=== PATIENT | male | born 1970 | race African-American/Black ===

== ENCOUNTER 2020-11-10 06:09 | Emergency (ER) | payer OTHER ==
[~2020-11-10] VITALS: Ht 170.2 cm; Wt 108.9 kg
--- NOTE | 2020-11-10 06:20 | NUR ---
ARRIVAL PT ARRIVED TO ED WITH C/O LOW BACK TO FEET NUMBNESS. PT REPORTS THAT HE HAS CHRONIC BACK PAIN HISTORY AND WHEN HE WOKE UP THIS MORNING HE FELT LIKE HE WAS NUMB FROM HIS LOWER BACK TO HIS FEET ON THE POSTERIOR SIDES OF HIS LEGS ONLY. BEDSIDE MONITORS APPIED. VITAL SIGNS STABLE. BED IN LOW LOCKED POSITION. PT DENIES ANY DIFFICULYT WITH VOIDING OR DEFICATION OR ANY LOSE OF URINE OR BOWELS.
[2020-11-10 06:32] VITALS: BP 149/97
[2020-11-10] MEDS ORDERED: TORADOL IM STA (06:40)
[2020-11-10] MEDS ORDERED: DECADRON IM STA (06:40)
--- NOTE | 2020-11-10 06:48 | ER.PDOC ---
General Chief Complaint: Lower Back Pain or Injury Stated Complaint: BACK PAIN Time seen by MD: 06:42 Source: patient Exam Limitations: no limitations History of Present Illness Initial Comments Low back pain radiating to both legs with tingling and numbness this morning. Patient has chronic back pain for years and takes pain medication and muscle relaxants, No recent fall or injury. No problems urinating or having a bowel movement. Timing/Duration: this morning Severity/Quality: moderate Radiation: upper legs, lower legs, feet Method of Injury: bending, twisted, prior injury Modifying Factors: improves with movement Associated Symptoms: muscle spasms, numbness in legs/feet, tingling in legs/feet, lower back pain Prior symptoms/Treatment: Similar symptoms previous Past Medical History Medical History: other (Chronic back pain) Surgical History: back Family History Significant Family History: no pertinent family hx Social History Alcohol Use: none Drug Use: none Review of Systems Constitutional: no symptoms reported EENTM: no symptoms reported Respiratory: no symptoms reported Cardiovascular: no symptoms reported Gastrointestinal: no symptoms reported Musculoskeletal: see HPI All Other Systems: Reviewed and Negative Physical Exam General Appearance: No Apparent Distress, WD/WN Neck: Non-Tender, Normal Alignment Cardiovascular/Respiratory: Regular Rate, Rhythm, No M/R/G, Normal Peripheral Pulses, No JVD, Normal Breath Sounds, No Respiratory Distress Gastrointestinal: Normal Bowel Sounds, No Organomegaly, No Pulsatile Mass, Non Tender, Soft Back: Normal Inspection, No CVA Tenderness, No Vertebral Tenderness, Muscle Spasm, Vertebral Tenderness (L spine) Extremities: No Evidence of Injury, Normal Range of Motion, Non-Tender, No Pedal Edema, Pelvis Stable Neuro/Psych: Alert, certified nurse practitioner nml/symmetrical, mood/effect nml, No Motor/Sensory Deficits, Relexes nml Skin: Normal Color, Warm/Dry Results/Orders Results/Orders Vital Signs Date Time Temp Pulse Resp B/P (MAP) Pulse Ox O2 Delivery O2 Flow Rate FiO2 11/10/20 06:32 98.9 91 18 149/97 (114) 96 Room Air 11/10/20 06:32 98.9 91 18 96 11/10/20 06:32 98.9 91 18 Administered Medications Medications (Trade) Dose Ordered Sig/Zander Route PRN Reason Start Time Stop Time Status Last Admin Dose Admin Ketorolac Tromethamine (Toradol) 60 mg STAT STAT IM 11/10/20 06:40 11/10/20 06:42 DC 11/10/20 06:56 60 MG Progress Progress Care of patient transferred to Dr. Armstrong at 0700 EKG/XRAY/CT/US CT Comments: L3-4 severe canal reduction d/t disc bulge ER DEPART Departure Time of Disposition: 07:53 Disposition: 01 HOME, SELF-CARE Impression: Primary Impression: Low back pain Additional Impression: Lumbar disc herniation with radiculopathy Condition: Stable Patient Instructions: Sciatica Referrals: PCP,UNKNOWN (PCP) PRIMARY CARE PROVIDER Additional Instructions: Take steroids as prescribed until gone. You may not return to work until released by your back surgeon. Return to ER if symptoms worsen, weakness to legs, loss of bowel/bladder control, or for any other concerns. No bending at the waist or lifting more than 10 pounds. Duration or Time Spent with Pa: 20 min Problem Qualifiers Primary Impression: Low back pain Chronicity: acute Back pain laterality: bilateral Sciatica presence: with sciatica Sciatica laterality: bilateral sciatica Qualified Codes: M54.42 - Lumbago with sciatica, left side; M54.41 - Lumbago with sciatica, right side NOHEMI LIVE MD Nov 10, 2020 06:48 RUTH ARMSTRONG DO Nov 10, 2020 07:55
[2020-11-10] MEDS ORDERED: TORADOL ONE (06:54)
[2020-11-10] MEDS ORDERED: DECADRON ONE (06:54)
--- NOTE | 2020-11-10 07:37 | DIREP ---
PROCEDURE: CT LUMBAR SPINE WITHOUT CONTRAST TECHNIQUE:Axial cuts were obtained through the lumbar spine. The images were viewed at bone settings. Sagittal and coronal reconstructions are provided. COMPARISON:None. INDICATIONS:pain FINDINGS: ALIGNMENT:Normal. VERTEBRAE:No fracture is demonstrated. Postsurgical changes are seen with laminectomies at L4-5. PARASPINAL AREA:Normal. OTHER:No additional findings. LUMBAR DISC LEVELS T12-L1:Normal. L1-L2:Normal. L2-L3:A diffuse disc bulge is seen with bilateral facet arthropathy with mild canal stenosis and moderate bilateral neural foraminal narrowing. L3-L4:A diffuse disc bulge is seen with bilateral facet arthropathy and ligamentum flavum hypertrophy with severe canal stenosis and severe bilateral neural foraminal narrowing. L4-L5:A diffuse disc bulge is seen with bilateral facet arthropathy with mild canal stenosis with severe bilateral neural foraminal narrowing. L5-S1:Bilateral facet arthropathy is seen with severe bilateral neural foraminal narrowing without canal stenosis. CONCLUSION: 1. Postsurgical changes are seen with laminectomies at L4-5. No compression fracture is seen. 2. There are findings of severe canal stenosis with severe bilateral neural foraminal stenosis at L3-4. Mild canal stenosis is demonstrated at L2-3 and L4-5 with multilevel neural foraminal stenosis as described above. Dictated by: Giancarlo Stevens M.D. On 11/10/2020 at 07:27 AM
[2020-11-10 07:56] VITALS: BP 132/84
== END 2020-11-10 07:58 | disposition home or self-care (01) ==
LOC: ER 06:09
DX: M54.42 Lumbago with sciatica, left side (principal); G89.29 Other chronic pain
CPT/HCPCS: 72131; 96372; 99284; J1100; J1885